=== PATIENT | female | born 1945 | race Caucasian/White ===

== ENCOUNTER 2017-10-18 07:29 | Day surgery (SDC) | payer MEDICARE ==
[2017-10-18] MEDS: LR 1,000 ML IV (07:50)
[2017-10-18] MEDS ORDERED: fentaNYL 100 MCG/2 ML INJECTION (J3010) As Ordered (09:16)
[2017-10-18] MEDS ORDERED: PROPOFOL 200 MG/20 ML VIAL As Ordered (09:16)
[2017-10-18] MEDS ORDERED: MIDAZOLAM INJ 2 MG/2 ML VIAL (J2250) As Ordered (09:16)
[2017-10-18] MEDS: POVIDONE-IODINE 5% OPHTH PREP SOL 30ML As Ordered (09:26)
[2017-10-18] MEDS: LIDOCAINE 2% W/EPIN INJ 20ML **PRES FREE As Ordered (09:45)
[2017-10-18] MEDS: ERYTHROMYCIN OPHTH OINT As Ordered (09:55)
[2017-10-18] MEDS: TETRACAINE 0.5% OPHTH SOLN 4ML As Ordered (09:58)
[2017-10-18] MEDS ORDERED: PERCOCET 5MG/325MG TAB PO (10:30)
[2017-10-18] MEDS ORDERED: LR 1,000 ML IV (10:30)
[2017-10-18] MEDS ORDERED: fentaNYL 100 MCG/2 ML INJECTION (J3010) IV (10:30)
[2017-10-18] MEDS ORDERED: HYDROMORPHONE HCL 0.5 MG/ 0.5 ML SYRINGE (J1170 PER 1) IV (10:30)
[2017-10-18] MEDS ORDERED: ONDANSETRON 4MG/2ML VIAL (J2405) IV (10:30)
== END 2017-10-18 10:41 | disposition home or self-care (01) ==
LOC: M OPP 07:29 → M SDC 07:29
DX: H02.834 Dermatochalasis of left upper eyelid (principal); H02.831 Dermatochalasis of right upper eyelid; I10 Essential (primary) hypertension; M81.0 Age-related osteoporosis without current pathological fracture; Z88.2 Allergy status to sulfonamides; Z79.899 Other long term (current) drug therapy; Z72.0 Tobacco use
CPT/HCPCS: 15823